=== PATIENT | male | born 1975 | race Caucasian/White ===

== ENCOUNTER 2017-10-25 16:54 | Emergency (ER) | payer OTHER ==
[~2017-10-25] VITALS: Ht 165.1 cm; Wt 84.1 kg
[2017-10-25] MEDS ORDERED: NAPROXEN500 MG PO (18:08)
[2017-10-25] MEDS ORDERED: FLEXERIL10 MG PO (18:08)
[2017-10-25 18:26] VITALS: BP 154/95
== END 2017-10-25 18:27 | disposition home or self-care (01) ==
LOC: EME 16:54
DX: S16.1XXA Strain of muscle, fascia and tendon at neck level, initial encounter (principal); V43.52XA Car driver injured in collision with other type car in traffic accident, initial encounter; Y92.411 Interstate highway as the place of occurrence of the external cause; F17.200 Nicotine dependence, unspecified, uncomplicated
CPT/HCPCS: 72125; 99281; 99284